=== PATIENT | male | born 1980 | race American Indian/Alaskan Native ===

== ENCOUNTER 2020-06-18 10:49 | Emergency (ER) | payer OTHER ==
[~2020-06-18] VITALS: Ht 175.3 cm; Wt 90.7 kg
[2020-06-18] MEDS ORDERED: IBUP400 PO (11:40)
[2020-06-18] MEDS ORDERED: ONDA4ODT SL (11:40)
== END 2020-06-18 11:49 | disposition home or self-care (01) ==
LOC: ER 10:49
DX: S01.01XA Laceration without foreign body of scalp, initial encounter (principal); Z88.0 Allergy status to penicillin; Z79.899 Other long term (current) drug therapy; W22.8XXA Striking against or struck by other objects, initial encounter
CPT/HCPCS: 12001; 96372-59; 99282-25; J1885